=== PATIENT | female | born 1945 | race Caucasian/White ===

== ENCOUNTER 2017-04-22 18:47 | Inpatient (IN) | payer MEDICARE ==
[~2017-04-22] VITALS: Ht 157.5 cm; Wt 66.1 kg
[2017-04-22] MEDS ORDERED: ESTRADIOL (18:56)
[2017-04-22] MEDS ORDERED: IBUPROFEN PRN (19:14)
[2017-04-22] MEDS ORDERED: [UNRECOGNIZED DRUG - OTHER] (19:14)
[2017-04-22 19:40] LABS: HEMATOCRIT 41.4 % (34.6-47.8); HEMOGLOBIN 14.2 g/dL (11.7-16.4); WHITE BLOOD COUNT 7.3 x10^3/uL (3.4-10)
[2017-04-22 19:52] LABS: BLOOD UREA NITROGEN 20 mg/dL (7-18)
[2017-04-22 19:58] LABS: IS PT STATUS REG ER OR PRE ER? YES
[2017-04-22] MEDS ORDERED: SODIUM CHLORIDE FLUSH 10ML SYR IVF PRN (20:30)
[2017-04-22 22:22] VITALS: BP 126/67
[2017-04-23 01:05] VITALS: BP 97/56
[2017-04-23] MEDS ORDERED: ACETAMINOPHEN 650 MG/20.3 ML UDC PO PRN (01:30)
[2017-04-23 06:28] VITALS: BP 106/57
[2017-04-23] MEDS ORDERED: GADOBUTROL 10 MMOL/10 ML VIAL ONE (08:19)
[2017-04-23] MEDS ORDERED: ASPIRIN 325 MG TABLET PO SCH (09:00)
[2017-04-23] MEDS ORDERED: FAMOTIDINE 20 MG TABLET PO SCH (09:00)
[2017-04-23] MEDS ORDERED: SODIUM CHLORIDE FLUSH 10ML SYR IVF SCH (09:00)
[2017-04-23 12:17] VITALS: BP 104/66
== END 2017-04-23 17:35 | disposition home or self-care (01) | DRG 69 ==
LOC: ED 21:36 → 4WST 22:00
PROVIDERS: ADMIT Family Medicine; ATTEND Family Medicine
DX: G45.9 Transient cerebral ischemic attack, unspecified (principal); Z82.3 Family history of stroke
CPT/HCPCS: 36415; 70450; 70544; 70549; 71010; 80048; 82040; 84484; 85025; 85610; 85651; 85730; 86140; 93005; 93306; 93880; 99285; A9585

== ENCOUNTER → 2018-02-21 | Outpatient (CLI) | payer MEDICARE ==
[~2018-02-21] MED LIST: ESTRADIOL; IBUPROFEN PRN; [UNRECOGNIZED DRUG - OTHER]
== END | disposition home or self-care (01) ==
LOC: CFH 08:45
PROVIDERS: ATTEND Genetic Counselor, MS
DX: Z12.31 Encounter for screening mammogram for malignant neoplasm of breast (principal); M85.89 Other specified disorders of bone density and structure, multiple sites
CPT/HCPCS: 77063; 77080; 77067